=== PATIENT | female | born 1995 | race African-American/Black ===

== ENCOUNTER 2017-08-16 11:06 | Emergency (ER) | payer OTHER ==
[2017-08-16 11:43] VITALS: BP 118/72; PULSE 75; TEMP 98.6; BMI 174.8
[2017-08-16] MEDS ORDERED: traMADol HCL 50 MG TABLET PO ONE (13:26)
[2017-08-16] MEDS ORDERED: traMADol HCL 50 MG TABLET ONE (13:35)
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
[2017-08-16 14:29] LABS: HCG,QUALITATIVE URINE POSITIVE
[2017-08-16 14:30] LABS: URINE APPEARANCE SLCLOUDY; URINE BILIRUBIN NEGATIVE (NEGATIVE); URINE BLOOD NEGATIVE (NEGATIVE); URINE COLOR DKYELLOW; URINE GLUCOSE (UA) NEGATIVE (NEGATIVE); URINE KETONE 1+ (NEGATIVE); URINE LEUK ESTERASE NEGATIVE (NEGATIVE); URINE NITRITE NEGATIVE (NEGATIVE)
[2017-08-16 14:35] LABS: URINE PROTEIN 1+ (NEGATIVE)
[2017-08-16 14:38] LABS: EPI CELLS MODERATE /HPF (FEW); URINE MUCUS MANY
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
== END 2017-08-16 16:32 | disposition home or self-care (01) ==
LOC: JERFT 11:06
DX: O99.89 Other specified diseases and conditions complicating pregnancy, childbirth and the puerperium (principal); S05.11XA Contusion of eyeball and orbital tissues, right eye, initial encounter; Y04.2XXA Assault by strike against or bumped into by another person, initial encounter; Y93.89 Activity, other specified; Y92.038 Other place in apartment as the place of occurrence of the external cause; Y99.8 Other external cause status; Y07.59 Other non-family member, perpetrator of maltreatment and neglect; Z3A.00 Weeks of gestation of pregnancy not specified
CPT/HCPCS: 70450-TC; 70486-TC; 81003; 81015; 84703; 99281-25